=== PATIENT | male | born 1960 | race Caucasian/White ===

== ENCOUNTER 2018-06-24 14:57 | Inpatient (IN) | payer OTHER, MEDICARE ==
[~2018-06-24] VITALS: Ht 157.5 cm; Wt 62.3 kg
[2018-06-24 15:44] LABS: ABSOLUTE BASOPHIL COUNT 0 /CUMM (0.0-0.2); ABSOLUTE EOSINOPHIL COUNT 1.2 /CUMM (0.0-0.7); ABSOLUTE LYMPH COUNT 2.8 /CUMM (1.2-3.4); ABSOLUTE MONOCYTE COUNT 0.7 /CUMM (0.10-0.60); BASOPHIL % 0.4 % (0.0-2.0); GRANULOCYTE % 51.8 % (42.2-75.2); HEMATOCRIT 54.7 % (42-52); MEAN CORPUSCULAR HGB 30.1 PG (27.0-31.0); MEAN CORPUSCULAR HGB CONC 32.8 G/DL (33.0-37.0); MEAN CORPUSCULAR VOLUME 91.8 FL (80.0-94.0); MEAN PLATELET VOLUME 8.2 FL (7.4-10.4); PLATELET COUNT 272 /CUMM (130-400); RBC DISTRIBUTION WIDTH 13.3 % (11.5-14.5); RED BLOOD CELL CT 5.95 /CUMM (4.70-6.10); WHITE BLOOD CELL COUNT 9.7 /CUMM (4.8-10.8)
--- NOTE | 2018-06-24 15:52 | ED PSYCHIATRIC COMPLAINT ---
History of Present Illness General Chief Complaint: ETOH/Drug Related Complaint Stated Complaint: ETOH Source: patient Exam Limitations: intoxication Vital Signs & Intake/Output Vital Signs & Intake/Output Vital Signs Date Time Temp Pulse Resp B/P B/P Pulse O2 O2 Flow FiO2 Mean Ox Delivery Rate 06/25 1004 97.6 90 18 157/90 06/25 0934 97.6 90 18 157/90 98 Room Air 06/25 0745 97.9 78 20 138/78 06/25 0642 88 18 141/80 98 Room Air 06/25 0529 98.0 99 20 152/76 06/25 0328 98.0 101 20 146/86 06/25 0230 98.2 100 20 136/84 06/25 0010 98.0 102 20 154/96 100 Room Air 06/24 2121 98.2 106 20 165/101 96 06/24 1920 98.2 120 20 141/90 95 Room Air 06/24 1744 97.7 131 20 134/81 97 Room Air 06/24 1505 97.8 128 24 143/89 97 Room Air Room Air ED Intake and Output 06/25 0000 06/24 1200 Intake Total Output Total 300 Balance -300 Output, Urine 300 Patient 145 lb Weight Weight Reported by Patient Measurement Method Allergies Coded Allergies: NO KNOWN ALLERGIES (06/24/18) Triage Note: BIBA + ETOH, PER EMS "HE SENT A VIDEO TO A FRIEND SAYING BOOGIE". PT ARRIVES INCOHERENT, VERY WET (POURING RAIN), CHANGED TO DRY HOSP GOWN AND RED SOCKS. UNABLE TO GET CLEAR STORY FROM PT, HAD [employer] SPEAKING SITTER ATTEMPT TO ASSIST, BUT PT SPEAKING IN [facility]. Triage Nurses Notes Reviewed? yes HPI: Patient presents for evaluation of possible alcohol intoxication and suicide ideation. According to the police PEER, the patient had taken an overdose of Tylenol PM and posted video saying boogiee to everyone. (Edwina LOOMIS,Romeo Siegel) Reconcile Medications No Known Home Medications (Cathy LOOMIS,[facility]) Past History Travel History Traveled to [place] past 21 day No Medical History Any Pertinent Medical History? see below for history Isolation History: Standard Surgical History Surgical History: non-contributory Psychosocial History What is your primary language Uzbek Family History Hx Contributory? No (Edwina LOOMIS,Romeo Siegel) Review of Systems Review of Systems Constitutional: Reports: no symptoms. EENTM: Reports: no symptoms. Respiratory: Reports: no symptoms. Cardiovascular: Reports: no symptoms. GI: Reports: no symptoms. Genitourinary: Reports: no symptoms. Musculoskeletal: Reports: no symptoms. Skin: Reports: no symptoms. Neurological/Psychological: Reports: no symptoms. Hematologic/Endocrine: Reports: no symptoms. Immunologic/Allergic: Reports: no symptoms. All Other Systems: Reviewed and Negative (Edwina LOOMIS,Romeo Siegel) Physical Exam Physical Exam General Appearance: SEE BELOW Neurological/Psychiatric: SEE BELOW SAD PERSONS Done? DEFERRED TO CRISIS (Edwina LOOMIS,Romeo Siegel) Progress Differential Diagnosis: drug intoxication, drug overdose, electrolyte abnormality, hypoglycemia Plan of Care: Orders Procedure Date/time Status Regular Diet 06/25 L Active Heart Healthy Diet 06/25 B Complete Patient Data - inpatient psych 06/25 1058 Active Admit to inpatient psych 06/25 1058 Active Admit to inpatient psych 06/25 1036 Active ED CRISIS PSYCH CONSULT 06/25 0712 Active Vital Signs 06/25 UNK Active Activity/Ambulation 06/25 UNK Active ACETOMINOPHEN 06/24 1900 Complete Add-on Test (ER Only) 06/24 1827 Active EKG 06/24 1827 Active CIWA 06/24 1826 Active FingerStick- Glucose 06/24 1822 Active Add-on Test (ER Only) 06/24 1626 Active ACETOMINOPHEN 06/24 1535 Complete TSH REFLEX 06/24 1535 Complete SALICYLATE 06/24 1535 Complete Intake & Output 06/24 1527 Active URINE DRUG SCREEN FOR ER ONLY 06/24 1513 Complete URINALYSIS 06/24 1513 Complete MAGNESIUM 06/24 1513 Complete ETHANOL 06/24 1513 Complete COMPREHENSIVE METABOLIC PANEL 06/24 1513 Complete CBC WITHOUT DIFFERENTIAL 06/24 1513 Complete Patient Safety Monitor 06/24 1512 Active Current Medications Sig/Mamadou Start time Last Medication Dose Stop Time Status Admin Chlordiazepoxide HCl 50 MG AT BEDTIME 06/25 2100 UNVr (Librium) Chlordiazepoxide HCl 25 MG Q4 HRS NEEDED PRN 06/25 1115 UNVr (Librium) Chlordiazepoxide HCl 50 MG Q4 HRS NEEDED PRN 06/25 1115 UNVr (Librium) Chlordiazepoxide HCl 25 MG ONCE ONE 06/25 1115 UNVr (Librium) 06/25 1116 Folic Acid 1 MG DAILY 06/25 1104 UNVr (Folic Acid) Multivitamins 1 TAB DAILY 06/25 1104 UNVr (Theragran Vitamins) Thiamine HCl 100 MG DAILY 06/25 1104 UNVr (Vitamin B1) Acetaminophen 650 MG Q4P PRN 06/25 1100 UNVr (Tylenol) Al Hydroxide/Mg 30 ML Q4-6 PRN PRN 06/25 1100 UNVr Hydroxide (Maalox Plus) Magnesium Hydroxide 30 ML AT BEDTIME PRN 06/25 1100 UNVr (Milk Of Magnesia) Laboratory Tests 06/24/18 1850: Acetaminophen < 10.0 L 06/24/18 1535: Urine Opiates Screen < 100, Methadone Screen 66, Barbiturate Screen < 60, Ur Phencyclidine Scrn < 6.00, Amphetamines Screen < 100, U Benzodiazepines Scrn < 85, Urine Cocaine Screen < 50, Urine Cannabis Screen < 5.00 06/24/18 1535: Anion Gap 13, Estimated GFR > 60, BUN/Creatinine Ratio 7.3, Glucose 43 *L, Calcium 9.4, Magnesium 2.6 H, Total Bilirubin 0.6, AST 24, ALT 15 L, Alkaline Phosphatase 64, Total Protein 8.4 H, Albumin 4.8, Globulin 3.6, Albumin/ Globulin Ratio 1.3, TSH &T3 &Free T4 Intrp 1.240, CBC w Diff NO MAN DIFF REQ, RBC 5.95, MCV 91.8, MCH 30.1, MCHC 32.8 L, RDW 13.3, MPV 8.2, Gran % 51.8, Lymphocytes % 28.7, Monocytes % 7.1, Eosinophils % 12.0 H, Basophils % 0.4, Absolute Granulocytes 5.0, Absolute Lymphocytes 2.8, Absolute Monocytes 0.7 H, Absolute Eosinophils 1.2, Absolute Basophils 0, Salicylates < 1.0, Acetaminophen < 10.0 L, Serum Alcohol 163.0, Urine Color YEL, Urine Clarity CLEAR, Urine pH 6.5, Ur Specific [place] <= 1.005, Urine Protein NEG, Urine Ketones NEG, Urine Nitrite NEG, Urine Bilirubin NEG, Urine Urobilinogen 0.2, Ur Leukocyte Esterase NEG, Ur Microscopic EXAM NOT REQUIRED, Urine Hemoglobin NEG, Urine Glucose NEG Initial ED EKG: NSR, rate (130) Comments: 06/24/2018 4:59:28 PM I reevaluated jose while the IV was being placed for his IV dextrose. Clinically he appeared much more alert and his speech is considerably more clear and coherent. 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 (Edwina LOOMIS,oRmeo Siegel) Hand-Off Endorsed To: Xochitl Morgan MD Endorsed Time: 0716 (Mitul LOOMIS,Robert) Comments: 1031 crisis evaluation completed, the patient will be admitted. (Xochitl Morgan MD) Departure Departure Disposition: STILL A PATIENT Condition: Stable Referrals: Jose Arizmendi MD (PCP/Family) Departure Forms: Customer Survey General Discharge Information (Edwina LOOMIS,Romeo Siegel) Departure Time of Disposition: 1030 Clinical Impression Primary Impression: Alcohol intoxication Qualifiers: Complication of substance-induced condition: uncomplicated Qualified Code: F10.920 - Alcohol use, unspecified with intoxication, uncomplicated Secondary Impressions: Depression Prescriptions: Current Visit Scripts No Known Home Medications Admission Note Spoke With: Michael Gabriel MD Documentation of Exam: Documentation of any treatments & extenuating circumstances including Concerns Regarding Discharge (functional status, medication knowledge or non-compliance, living conditions, etc.) that warrant an admission rather than observation: Patient to be admitted with depression to Inpatient Psychiatry. (Xochitl Morgan MD)
[2018-06-25] VITALS (10 sets, daily range): BP systolic 134–166; BP diastolic 76–96
--- NOTE | 2018-06-25 08:26 | ED PSYCH CRISIS CONSULTATION ---
Crisis Consult Basic Assessment Date of Consult: 06/25/18 Responsible Person/Accompanied By: self/biba/PEER Insurance Authorization: Insurance #1: Insurance name: MEDICARE A Phone number: Policy number: [id number] Group number: Authorization number: ED Provider: Patient's ED Provider: Edwina LOOMIS,Romeo Siegel Primary Care Physician: Patient's PCP: Josué Arizmendi MD PCP's Current Psychiatrist: none Chief Complaint: ETOH/Drug Related Complaint Patient's Quote: I've been depressed for a long time Present Illness: Pt is a 58 yo male biba yesterday afternoon to [place] ED on a [place] [employer] PEER. PEER documents pt sent out a video to friends saying boogiee and was found in his apartment with an empty bottle of tylenol PM, a large pile of vomit and an empty bottle of whiskey. ED BAL: 163. Pt is primarily Haitian speaking but appears to understand and communicate well in Azeri. Pt reports he came to the [place] in his early 30s. Pt reports feeling depressed for a long time since back injury in 2008. 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 Pt reports significant financial stressors including possibility of losing his house and car. Pt admits to depression score of 9/10 with 10 being most severe depression but denies being suicidal and states yesterday incident was impulsive and foolish. Pt has recently returned from a long visit in [place] where the majority of his biological family reside. 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 Pt resides with his 19 yo step-daughter and maintains a good relationship with his ex- who is the mother of his 7 yo daughter. Pt reports having a 36 yo daughter in [place] and a 28yo son in [facility]. Pt reports no prior suicide attempts or inpatient psychiatric hospitalizations. Pt denies HI/ AH/VH. Pt reports being prescribed Cymbalta by Marycruz Samuels APRN but stopped taking in October 2017 because he didn't like how it made him feel. Pt reports seeing therapist Katrina Mcduffie [phone] in [place] for depression but hasn't seen her since March. Pt reports poor sleep and takes Advil PM to help. Pt reports decreased appetite and only eating 1x/day past 2 weeks. Pt presenting as tearful, sad affect, soft spoken, cooperative and OX3. Case reviewed with Dr Gabriel with recommendation for inpatient psychiatric treatment. Pt willing to sign in voluntarily for admission to [facility]. Patient's Address: [address] [place], [place] [id number] Other Phone Number: Who Do You Live With? Daughter (step-daughter age 19) Family/Informants Interviewed: collateral provided by pt step-daughter Kandice ( age 19) [phone]. She reports pt yesterday sent a 5 min tearful [employer]ation [employer] video to his 7 yo daughter and a friend out state that her mother saw and called 911. She reports pt also stated to her mother yesterday " I'd rather and go to hell...I don't care anymore". Allergies - Coded Allergies: NO KNOWN ALLERGIES (06/24/18) Current Medications - No Known Home Medications Laboratory Results: Laboratory Tests 06/24/18 1850: Acetaminophen < 10.0 L 06/24/18 1535: Urine Opiates Screen < 100, Methadone Screen 66, Barbiturate Screen < 60, Ur Phencyclidine Scrn < 6.00, Amphetamines Screen < 100, U Benzodiazepines Scrn < 85, Urine Cocaine Screen < 50, Urine Cannabis Screen < 5.00 06/24/18 1535: Anion Gap 13, Estimated GFR > 60, BUN/Creatinine Ratio 7.3, Glucose 43 *L, Calcium 9.4, Magnesium 2.6 H, Total Bilirubin 0.6, AST 24, ALT 15 L, Alkaline Phosphatase 64, Total Protein 8.4 H, Albumin 4.8, Globulin 3.6, Albumin/ Globulin Ratio 1.3, TSH &T3 &Free T4 Intrp 1.240, CBC w Diff NO MAN DIFF REQ, RBC 5.95, MCV 91.8, MCH 30.1, MCHC 32.8 L, RDW 13.3, MPV 8.2, Gran % 51.8, Lymphocytes % 28.7, Monocytes % 7.1, Eosinophils % 12.0 H, Basophils % 0.4, Absolute Granulocytes 5.0, Absolute Lymphocytes 2.8, Absolute Monocytes 0.7 H, Absolute Eosinophils 1.2, Absolute Basophils 0, Salicylates < 1.0, Acetaminophen < 10.0 L, Serum Alcohol 163.0, Urine Color YEL, Urine Clarity CLEAR, Urine pH 6.5, Ur Specific [place] <= 1.005, Urine Protein NEG, Urine Ketones NEG, Urine Nitrite NEG, Urine Bilirubin NEG, Urine Urobilinogen 0.2, Ur Leukocyte Esterase NEG, Ur Microscopic EXAM NOT REQUIRED, Urine Hemoglobin NEG, Urine Glucose NEG Past History Past Surgical History Surgical History: non-contributory Psychosocial History Strengths/Capabilities: supportive family but primarily in [place] Psychiatric Treatment History Psych Treatment Psychiatric Treatment Yes Inpatient Treatment No Outpatient Treatment Yes Substance Use/Abuse History Drug Use/Abuse Substances Used/Abused Yes Substance Used/Abused Alcohol Last Used yesterday How much used/taken undetermined How often daily Substance Abuse Treatment Substance Abuse Treatment Past Substance Abuse [place] No Inpatient Treatment No Outpatient Treatment No Comments: pt reports etoh 1-2 glasses of wine/day but will drink excessively when feeling depressed. Current Mental Status Mental Status Orientation: Person, Place, Situation Affect: Depressed, Hopeless, Sad Speech: Soft Neuro-vegetative: Anhedonia, Appetite Decreased, Helpless, Loss of Interest, Sleep Disturbance Behaviors Thought Process: WNL Thought Content: WNL Memory: WNL Insight: Fair SI/HI Risk Assessment Past Suicidal Ideation/Attempts Yes (pt denies) Current Suicidal Ideation/Att No Past Homicidal Ideation/Att: No Current Homicidal Ideation/Attempts No Degree of Intent: Thoughts/No Intent Danger To: Self Gravely Disabled: Poor Impulse Control, Poor Judgment Risk Factors: chronic/serious med cond., high anxiety/distress, substance abuse, isolate/no social support, poor impulse control, male, limited support Lethality Ratin PTSD Checklist PTSD Done? patient declined ED Management Sitter: Yes Restraints: No DSM5/PS Stressors/Medical Prob Diagnosis' (DSM 5, Stressors, Medical): Unspecified Depression F32.9 Alcohol Use D/O F 10.20 financial lack of family supports in [place] chronic back pain Current GAF: 25 Comments: pt reports hx of depression since back injury 2008. Pt reports prescribed Cymbalta by Marycruz Samuels APRN- last dose Oct 2017 - feels it wasn't helpful - currently in outpatient tx last appointment March 2018. Departure Disposition Psych Medical Clearance Date: 06/25/18 Medically Cleared at: 0730 Time Started: 729 Time Ended: 814 Psychiatrist Consulted: Michael Gabriel MD Date Disposition Established: 06/25/18 Time Disposition Established: 899 Plan for Disposition - Modality: Inpatient Psychiatry Facility: [facility] Rationale for Disposition: mood stabilization; medication assessment Type of IP Admission: Voluntary Referrals Ugo LOOMIS,Josué Ferro (PCP/Family)
--- NOTE | 2018-06-25 11:27 | IP CRISIS DIAG ASSESS PSYCH ---
Diagnostic Assessment Basic Assessment Insurance Authorization: Insurance #1: Insurance name: MEDICARE A BEHAVIORAL HEALTH Phone number: Policy number: [id number] Group number: Authorization number: Nadiya# [id number] Primary Care Physician: Patient's PCP: Josué Arizmendi MD PCP's Patient's Quote: I've been depressed for a long time Present Illness: Pt is a 58 yo male biba yesterday afternoon to [place] ED on a [place] [employer] PEER. PEER documents pt sent out a video to friends saying jessicarosaliae and was found in his apartment with an empty bottle of tylenol PM, a large pile of vomit and an empty bottle of whiskey. ED BAL: 163. Pt is primarily New Zealander speaking but appears to understand and communicate well in Yoruba. Pt reports he came to the [place] in his early 30s. Pt reports feeling depressed for a long time since back injury in 2008. 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 Pt reports significant financial stressors including possibility of losing his house and car. Pt admits to depression score of 9/10 with 10 being most severe depression but denies being suicidal and states yesterday incident was impulsive and foolish. Pt has recently returned from a long visit in [place] where the majority of his biological family reside. 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 Pt resides with his 19 yo step-daughter and maintains a good relationship with his ex- who is the mother of his 7 yo daughter. Pt reports having a 36 yo daughter in [place] and a 28yo son in [facility]. Pt reports no prior suicide attempts or inpatient psychiatric hospitalizations. Pt denies HI/ AH/VH. Pt reports being prescribed Cymbalta by Marycruz Samuels APRN but stopped taking in October 2017 because he didn't like how it made him feel. Pt reports seeing therapist Katrina Mcduffie [phone] in [place] for depression but hasn't seen her since March. Pt reports poor sleep and takes Advil PM to help. Pt reports decreased appetite and only eating 1x/day past 2 weeks. Pt presenting as tearful, sad affect, soft spoken, cooperative and OX3. Case reviewed with Dr Gabriel with recommendation for inpatient psychiatric treatment. Pt willing to sign in voluntarily for admission to [facility]. Patient's Address: [address] [place] [id number] Other Phone Number: Who Do You Live With? Daughter (step-daughter age 19) Feel Safe Where You Live? Yes Feel Safe in Your Relationship Yes Marital Status: Do You Have Children? Yes Ages? 36,28,7 Primary Language? New Zealander Language(s) Spoken At Home: New Zealander Family/Informants Interviewed: collateral provided by pt step-daughter Kandice ( age 19) [phone]. She reports pt yesterday sent a 5 min tearful [place] video to his 7 yo daughter and a friend out state that her mother saw and called 911. She reports pt also stated to her mother yesterday " I'd rather and go to hell...I don't care anymore". Allergies - Coded Allergies: NO KNOWN ALLERGIES (06/24/18) Current Medications - No Known Home Medications Consequences of Psych Med Use: pt had prior trial of Cymbalta (last use Oct 2017) reports it was ineffective Lab Results: Laboratory Tests 06/24/18 1850: Acetaminophen < 10.0 L 06/24/18 1535: Urine Opiates Screen < 100, Methadone Screen 66, Barbiturate Screen < 60, Ur Phencyclidine Scrn < 6.00, Amphetamines Screen < 100, U Benzodiazepines Scrn < 85, Urine Cocaine Screen < 50, Urine Cannabis Screen < 5.00 06/24/18 1535: Anion Gap 13, Estimated GFR > 60, BUN/Creatinine Ratio 7.3, Glucose 43 *L, Calcium 9.4, Magnesium 2.6 H, Total Bilirubin 0.6, AST 24, ALT 15 L, Alkaline Phosphatase 64, Total Protein 8.4 H, Albumin 4.8, Globulin 3.6, Albumin/ Globulin Ratio 1.3, TSH &T3 &Free T4 Intrp 1.240, CBC w Diff NO MAN DIFF REQ, RBC 5.95, MCV 91.8, MCH 30.1, MCHC 32.8 L, RDW 13.3, MPV 8.2, Gran % 51.8, Lymphocytes % 28.7, Monocytes % 7.1, Eosinophils % 12.0 H, Basophils % 0.4, Absolute Granulocytes 5.0, Absolute Lymphocytes 2.8, Absolute Monocytes 0.7 H, Absolute Eosinophils 1.2, Absolute Basophils 0, Salicylates < 1.0, Acetaminophen < 10.0 L, Serum Alcohol 163.0, Urine Color YEL, Urine Clarity CLEAR, Urine pH 6.5, Ur Specific [place] <= 1.005, Urine Protein NEG, Urine Ketones NEG, Urine Nitrite NEG, Urine Bilirubin NEG, Urine Urobilinogen 0.2, Ur Leukocyte Esterase NEG, Ur Microscopic EXAM NOT REQUIRED, Urine Hemoglobin NEG, Urine Glucose NEG Toxicology Screen Completed? Yes Results: positive Symptoms of Use: positive etoh, denies drugs or cigarettes Past History Abuse/Trauma History Trauma History/Current Trauma: Denies Legal History Current Legal Status: none Psychosocial History Strengths/Capabilities: supportive family but primarily in [place] Psychiatric Treatment History Psych Treatment Psychiatric Treatment Yes Inpatient Treatment No Outpatient Treatment Yes Risk Factors: chronic/serious med cond., high anxiety/distress, substance abuse, isolate/no social support, poor impulse control, male, limited support Substance Use/Abuse History Drug Use/Abuse minimum 12mo Hx Substances Used/Abused Yes Substance Used/Abused Alcohol Last Used yesterday How much used/taken undetermined How often daily Substance Abuse Treatment Substance Abuse Treatment Past Substance Abuse [place] No Inpatient Treatment No Outpatient Treatment No Education History Highest Level of Education: high school/GED Preferred Learning Style: visual, auditory, experiential Current Mental Status Mental Status Orientation: Person, Place, Situation Affect: Depressed, Hopeless, Sad Speech: Soft Neuro-vegetative: Anhedonia, Appetite Decreased, Helpless, Loss of Interest, Sleep Disturbance Appearance Appearance- Dress/Hygiene: hospital scrubs; adequately groomed; tearful/red eyes Behaviors Thought Process: WNL Thought Content: WNL Memory: WNL Insight: Fair SI/HI Risk Assessment - Minimum 6mo History- Past Suicidal Ideation/Attempts Yes (pt denies) Current Suicidal Ideation/Att No Past Homicidal Ideation/Att: No Current Homicidal Ideation/Attempts No Degree of Intent: Thoughts/No Intent Danger To: Self Gravely Disabled: Poor Impulse Control, Poor Judgment Risk Factors: chronic/serious med cond., high anxiety/distress, substance abuse, isolate/no social support, poor impulse control, male, limited support Lethality Ratin Needs/Init TX Plan/Goals: Psychiatric evaluation medication assessment individual, group and family meetings coordinated discharge planning AUDIT-C Questionnaire: AUDIT-C Questionnaire: Response Value ETOH use in the past year 4 or more per week 4 # drinks typical/day Doesn't Drink 0 6 or > drinks per occasion Monthly 2 Total 6 DSM5/PS Stressors/Medical Prob Diagnosis' (DSM 5, Stressors, Medical): Unspecified Depression F32.9 Alcohol Use D/O F 10.20 financial lack of family supports in chronic back pain Current GAF: 25 Comments: pt reports hx of depression since back injury 2008. Pt reports prescribed Cymbalta by Marycruz Samuels APRN- last dose Oct 2017 - feels it wasn't helpful - currently in outpatient tx last appointment March 2018.
[2018-06-26 07:34] VITALS: BP 129/79
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
--- NOTE | 2018-06-26 12:18 | History & Physical ---
General Information and HPI MD Statement: I have seen and personally examined LYNDSAY TERRY and documented this H&P. The patient is a 58 year old M who presented with a patient stated chief complaint of "descending video to a friend saying boogiee". Source of Information: patient, EMS, police Exam Limitations: unable to give history History of Present Illness: 58-year-old male brought in by ambulance positive EtOH. Per EMS he apparently sent a video to a friend saying zane. At the time they saw him he was incoherent. In the ER his BAL was 163. He feels depressed for a long time since his back surgery in 2008. He has no appetite and no energy is tearful has a sad affect and he is soft spoken. 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 Exam & Diagnostic Data Last 24 Hrs of Vital Signs/I&O Vital Signs Date Time Temp Pulse Resp B/P B/P Pulse O2 O2 Flow FiO2 Mean Ox Delivery Rate 06/26 0734 97.7 74 129/79 06/26 0734 97.7 74 129/79 06/25 1955 98.0 83 134/83 06/25 1952 98.0 83 134/83 06/25 1614 87 158/96 06/25 1257 92 141/79 Physical Exam General Appearance Alert, Oriented X3, Cooperative, No Acute Distress Skin No Rashes HEENT PERRLA, EOMI, Mucous Membr. moist/pink Neck No JVD, No thryomegaly Lymphatic Axillary nl, Cervical nl Cardiovascular Regular Rate, No Murmurs Lungs Clear to Auscultation, Normal Air Movement Abdomen Soft, No Tenderness, No Hepatospenomegaly Neurological Exam Findings: Normal Gait, Normal Speech, Strength at 5/5 X4 Ext, Normal Tone, Sensation Intact, Cranial Nerves 3-12 NL, Reflexes 2+ Cranial Nerves II through XII: intact Extremities No Edema, Normal Pulses, No Tenderness/Swelling Vascular Normal Pulses, Pulses Symmetrical Last 24 Hrs of Labs/Russel: Laboratory Tests 06/24/18 1850: Acetaminophen < 10.0 L 06/24/18 1535: Urine Opiates Screen < 100, Methadone Screen 66, Barbiturate Screen < 60, Ur Phencyclidine Scrn < 6.00, Amphetamines Screen < 100, U Benzodiazepines Scrn < 85, Urine Cocaine Screen < 50, Urine Cannabis Screen < 5.00 06/24/18 1535: Anion Gap 13, Estimated GFR > 60, BUN/Creatinine Ratio 7.3, Glucose 43 *L, Calcium 9.4, Magnesium 2.6 H, Total Bilirubin 0.6, AST 24, ALT 15 L, Alkaline Phosphatase 64, Total Protein 8.4 H, Albumin 4.8, Globulin 3.6, Albumin/ Globulin Ratio 1.3, TSH &T3 &Free T4 Intrp 1.240, CBC w Diff NO MAN DIFF REQ, RBC 5.95, MCV 91.8, MCH 30.1, MCHC 32.8 L, RDW 13.3, MPV 8.2, Gran % 51.8, Lymphocytes % 28.7, Monocytes % 7.1, Eosinophils % 12.0 H, Basophils % 0.4, Absolute Granulocytes 5.0, Absolute Lymphocytes 2.8, Absolute Monocytes 0.7 H, Absolute Eosinophils 1.2, Absolute Basophils 0, Salicylates < 1.0, Acetaminophen < 10.0 L, Serum Alcohol 163.0, Urine Color YEL, Urine Clarity CLEAR, Urine pH 6.5, Ur Specific Towner <= 1.005, Urine Protein NEG, Urine Ketones NEG, Urine Nitrite NEG, Urine Bilirubin NEG, Urine Urobilinogen 0.2, Ur Leukocyte Esterase NEG, Ur Microscopic EXAM NOT REQUIRED, Urine Hemoglobin NEG, Urine Glucose NEG Diagnostic Data EKG Results Normal Assessment/Plan As Ranked By This Provider Problem List: 1. Depression 2. Alcohol intoxication Qualifiers Complication of substance-induced condition: uncomplicated Qualified Code: F10.920 - Alcohol use, unspecified with intoxication, uncomplicated 3. Back pain Miscellaneous Miscellaneous Documentation Attending Case Discussed With: Michael Gabriel MD Primary Care Physician: Lyndsay Arizmendi MD Patient sees these Specialists Psych Level of Patient Care: ANTONIA Hammond Consults Needed: Consulting Specialty: Psychiatry Consulting Physician: Dr. Santiago Reason for Consult: Depression, ETOH Attending MD Review Statement Attending Statement Attending MD Statement: examined this patient
--- NOTE | 2018-06-26 14:45 | SOCIAL WORKER PROG NOTE PSYCH ---
Social Work Progress Note Progress Note I Dimitri Bustos ([facility] [place] Miller Apprentice[place] along with the medical student met with Josué this morning in his room. The patient stated that his mood is "good". 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 The client expressed that his step daughter is a trigger for him because she stays at his home and makes a mess in the house. The patient feels the need to help his family. Josué said that he paid for his step daughter' s car and let her live there. When asked what led up to him drinking and taking multiple Advil Pms the patient reports that financial stressors and his racing thoughts were overwhelming. He expressed that he had no intention to commit suicide and he just wanted to go to sleep for a few days. The patient made it clear that he sent the video to his seven year old daughter to apologize that he could not keep his promise to care for his daughter. He currently has shared custody of his 7 year old daughter with autism. The patient is aware that his drinking increases with his feelings of depression. His appetite decreases when he is feeling depressed. The patient has sleep difficulties on a regular basis. The exception to the patient's depression was the 3 month period that he was in [place]. The patient denies SI, HI, AH, and VH. The patient expressed that when he feels the urge to drink he needs to change his thoughts and go for a walk or hike. I inquired about if the patient had any family members that he would like to have a family meeting with or who would be a support for him to which he replied no most of my support is in [place] and I plan to move back there. The patient also mentioned that he plans to file for bankrupcy due to financial stressors. He shared that he believed that his step daughter learned from his ex aka her mother to "freeload off of him" The patient did sign a release for his therapist in [place].
[2018-06-26 15:45] VITALS: BP 131/78
[2018-06-26 19:43] VITALS: BP 140/86
[2018-06-26 20:09] VITALS: BP 140/86
[2018-06-27 07:39] VITALS: BP 140/79
[2018-06-27 07:46] VITALS: BP 140/79
--- NOTE | 2018-06-27 12:48 | CP SOUTH PROGRESS NOTE PSYCH ---
Psych (Inpt) Progress Note Progress Note Vital Signs Date Time Temp Pulse B/P B/P O2 06/27 0746 97.7 71 140/79 06/27 0739 97.7 71 140/79 06/26 2009 97.4 91 140/86 06/26 1943 97.4 91 140/06/26 1545 75 131/78 Mental Status Examination Short and thin [place]er man with steady gait, he was calm and cooperative, Normal psychomotor activity. No abnormal or bizarre behaviors. Normal speech, not pressured. Good range of affect, he reported that he's feeling much better ( not depressed) today. he looked calm and in better spirits. He denied any thoughts of suicide today, he denied any thoughts of violence or homicide today. He denied hallucinations. He denies feeling paranoid, there were no delusions during the interview Coherent, no thought disorder, partial insight. Alert and oriented to time, place, and person. No difficulties with information processing. No evidence of short-term memory impairment Assessment: A 58-year-old white male of [place]er extraction who was admitted after being found with an empty bottle of whiskey and an empty bottle of Tylenol. Patient reported that he was doing well in [place] while he was spending an extended vacation. He reported he felt extremely depressed soon after he came back (10 days earlier). There has been a lot of psychosocial stressors including conflict with his 19-year-old step-daughter who seems to be taking advantage of the patient financially Diagnoses: Major Depressive Disorder Adjustment Disorder with disturbance of emotions and conduct Treatment Plan: The patient was mostly concerned about the sexual side effects of antidepressants. I discussed with him options that have minimal sexual side effects regarding antidepressant medications and he was agreeable to give Remeron chance I discussed with him the advantages and side effects of Remeron and we agreed on the following plan: D/C CIWA D/C PRN Librium Reduce bedtime Librium to 10 mg QHS for the weekedn Start Remeron 7.5 mg at bedtime Slated for discharge on Saturday
--- NOTE | 2018-06-27 13:33 | SOCIAL WORKER PROG NOTE PSYCH ---
Social Work Progress Note Progress Note I Dimitri Bustos (PERSONNEL PLACEMENT SPECIALIST Welfare Centre Manager) met with Josué in the late morning. The patient stated that he was in a "good" mood today which was consistent with his affect. On a scale of 1 to 10 with 10 being severe the patient rated his depression as a 2 today. The patient reported no anxiety. He feels eager to go home but was accepting of the doctor's decision to stay through the weekend. Josué expressed that he has enjoys groups on the unit. In groups he gets to share his stories but he can learn from others experiences. Josué shared that his family in [place] is supportive and they want him to come back to [place]. Patient has a support system in [place] but his 7 year old daughter is in [facility] and he still want to be around for her because she lived with him up until recently. The daughter currently lives with her mother which Josué has mixed feelings about. He wants the daughter to have a relationship with her mother. Josué is very protective of his duaghter and wants to ensure her safety. He is comfortable with his daughter living with hier mother now that her anger is under control. Josué said his ex only acted out of anger once towards him and police were involved. She has never hurt the children. Patient verbalized that he did not send a video saying zane instead it was a tearful apology. The thought process behind this is that prior to returning home from [place] he told his step daughter that she needs to find somewhere else to live soon and to get a job to help pay her bills. I asked Josué his thoughts about doing an IOP when he discharges. I informed him that IOP meets three times a week for three hours each day which consists of group therapy along with medications management. I let him know this is generally the next level of care that is suggested for patients who discharge from the unit. The patient acknowledged that he likes the groups on the unit thus but would like some more time to think about IOP since he has a lot on his mind . He will inform Daria Graf LCSW about his thoughts about IOP on Saturday.
--- NOTE | 2018-06-27 16:28 | SOCIAL WORKER PROG NOTE PSYCH ---
Social Work Progress Note Progress Note The services requested require additional review. You will be contacted regarding the status of this request if further information is needed. An authorization decision will be made within the required timeframes and details of that decision may be found under the member's authorization history. Member Name Member ID Member Subscriber Name Subscriber ID LYNDSAY BATISTA [id number] 1960 LYNDSAY BATISTA [id number] Pended Authorization # Client Authorization # Type of Request [id number] CONCURRENT Date of Admission/ Start of Services Requested From Submission Date 06/25/2018 06/28/2018 06/27/2018 Level of Service Type of Service Level of Care Type of Care INPATIENT/HLOC [facility]patient [facility] Reason Code P76 Provider Name & Address Provider ID Provider Alternate ID NPI # for Authorization WILBER ORTEGA [id number] N/A [address] [facility] [id number] Message
[2018-06-27 19:55] VITALS: BP 138/85
[2018-06-28 07:40] VITALS: BP 137/90
--- NOTE | 2018-06-28 16:06 | CP SOUTH PROGRESS NOTE PSYCH ---
Psych (Inpt) Progress Note Progress Note Progress Note: A 58-year-old white male of [place] extraction who was admitted after being found with an empty bottle of whiskey and an empty bottle of Tylenol. There has been a lot of psychosocial stressors including conflict with his 19- year-old step-daughter who seems to be taking advantage of the patient financially. Today, pt feels "good". He reported good sleep and appetite. He denied any issues with energy level. He denied any suicidal ideation. Hedenied any worries. He denied any medication side effect. He denied any hallucination. PER RN report, pt is doing OK. No issues on the unit. MMSE: PT was AOx3. He was appropriately dress and well groomed. Good eye contact. HE was cooperative and engaged. His thoughts were linear and goal directed. NO suicidal thought or homicidal thoughts or psychosis or halluicnation. His speech was normal rate. His insight and judgement is fair. 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 No mood issue or suicidality or withdrawal symptoms. Will continue medication. Treatment Plan: D/C CIWA D/C PRN Librium Reduce bedtime Librium to 10 mg QHS for the weekedn Continue Remeron 7.5 mg at bedtime Slated for discharge on Saturday
[2018-06-28 20:20] VITALS: BP 156/72
[2018-06-29 08:29] VITALS: BP 136/87
--- NOTE | 2018-06-29 13:23 | CP SOUTH PROGRESS NOTE PSYCH ---
Psych (Inpt) Progress Note Progress Note A 58-year-old white male of [place] extraction who was admitted after being found with an empty bottle of whiskey and an empty bottle of Tylenol. There has been a lot of psychosocial stressors including conflict with his 19- year-old step-daughter who seems to be taking advantage of the patient financially. Today, Pt again noted feeling good and relax. He denied any issues with sleep or appetite. He denied any worries or suicidality or medication side effect. PER RN report, pt is doing OK. No behavioral issues Current Medications Sig/Mamadou Start time Last Medication Dose Route Stop Time Status Admin Acetaminophen 650 MG Q4P PRN 06/25 1100 AC PO Al Hydroxide/Mg 30 ML Q4-6 PRN PRN 06/25 1100 AC Hydroxide PO Chlordiazepoxide HCl 10 MG AT BEDTIME 06/27 2100 AC 06/28 PO 2125 Folic Acid 1 MG DAILY 06/25 1120 AC 06/29 PO 0937 Magnesium Hydroxide 30 ML AT BEDTIME PRN 06/25 1100 AC 06/29 PO 0939 Mirtazapine 7.5 MG AT BEDTIME 06/27 2100 AC 06/28 PO 2125 Multivitamins 1 TAB DAILY 06/25 1120 AC 06/29 PO 0937 Thiamine HCl 100 MG DAILY 06/25 1120 AC 06/29 PO 0937 Vital Signs Date Time Temp Pulse Resp B/P B/P Pulse O2 O2 Flow FiO2 Mean Ox Delivery Rate 06/29 829 96.2 75 136/87 06/28 2020 97.0 79 156/72 MMSE: PT was AOx3. He was appropriately dress and well groomed. He was cooperative and engaged. His thoughts were linear and goal directed. Good eye contact. . NO suicidal thought or homicidal thoughts or psychosis or halluicnation. His speech was normal rate. His insight and judgement is fair. 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 Will continue medication Treatment Plan: D/C CIWA D/C PRN Librium Reduce bedtime Librium to 10 mg QHS for the weekednd Continue Remeron 7.5 mg at bedtime Slated for discharge on Saturday
[2018-06-29 19:53] VITALS: BP 158/88
[2018-06-30 07:39] VITALS: BP 134/95
--- NOTE | 2018-06-30 08:47 | CP SOUTH PROGRESS NOTE PSYCH ---
Psych (Inpt) Progress Note Progress Note I reviewed Dr. Mitchell's notes (covering for the weekend of 06/28 and 2017). The patient's progress, treatment plan, and aftercare plans were discussed in the treatment team meeting this morning. Team members included: LCSWs, RNs, OTR/ L, Activities Therapist, and Psychiatrist. Mental Status Examination Josué was alert and oriented to time, place, and person. He was calm and cooperative, showed normal psychomotor activity. No abnormal or bizarre behaviors. Normal speech, not pressured. He showed good range of affect, he reported that he's feeling much better (not depressed). He was calm and in good spirits. He denied wishing or thoughts of suicide. He denied any thoughts of violence or homicide today. He denied hallucinations. He denies feeling paranoid, there were no delusions during the interview. He was coherent, no thought disorder, and no difficulties with information processing. No evidence of short-term memory impairment. Treatment Plan Update: Discharge Home Major Depressive Disorder Adjustment Disorder with disturbance of emotions and conduct Treatment Plan: The patient was mostly concerned about the sexual side effects of antidepressants. I discussed with him options that have minimal sexual side effects regarding antidepressant medications and he was agreeable to give Remeron chance I discussed with him the advantages and side effects of Remeron and we agreed on the following plan: D/C CIWA D/C PRN Librium Reduce bedtime Librium to 10 mg QHS for the weekedn Start Remeron 7.5 mg at bedtime Slated for discharge on Saturday
[2018-06-30] MEDS ORDERED: REMERON15 M2 PO (08:53)
--- NOTE | 2018-06-30 08:56 | Patient Discharge Instructions ---
Psych Discharge Inst General Discharge Information Reason for Admission: suspicion of overdose Psy Discharge Primary Diag+ Major Depressive Disorder Summary Tests/Major Procedures Lab Acetaminophen < 10.0 ug/mL L 06/24/18 1535 Acetaminophen < 10.0 ug/mL L 06/24/18 1850 Studies Pending at DC: none Patient Instructions Contact Information Your Psychiatrist on [facility] was Harvey LOOMIS,Michael * If you are experiencing an emergency related to this hospitalization, please call [phone] to contact the treating psychiatrist or the psychiatrist-on- call. * To Request a copy of your medical records, please contact the Medical Records Department at [phone]. * To request results of studies pending at the time of discharge, please call [phone]. * Continue your Medications until directed to stop by your Healthcare provider. General Medication Information Please continue to take your new medications and your continued home medications , unless otherwise indicated on your discharge medication list, or unless directed by your MD or ELECTRONIC WIRER to stop them. Special Instructions Diet Regular Activity Normal - Tobacco Use Treatment Offered Post DC Medications Offered: Not Applicable Post DC Tobacco Treatment Plan: Not Applicable - EtOH/Drug Use D/O Treatment Offered Post DC Medications Offered: NA-No EtOH/Drug Use D/O Post DC EtOH/SubAbuse TX Plan: NA-No EtOH/Drug Use D/O Metabolic Screening Not Applicable, patient not on a neuroleptic. Advance Directives Does the Patient have Medical Advance Directives No/Refused further info Does Pt have Psychiatric Advance Directives? No/Refused further info Does Patient have a Designated Surrogate Decision Maker: No Information About Psychiatric Advance Directives Provided? Refused Discharge Plan Post Hospital Treatment Plan: Marycruz Samuels APRN
--- NOTE | 2018-06-30 10:54 | SOCIAL WORKER PROG NOTE PSYCH ---
Social Work Progress Note Progress Note Met with Josué this morning. He reported having a good weekend. Visited with ex - and her current boyfriend. Mood has improved since admission. Talked alot about the difficult decision of returning to [place] to live and leave his 7 year old daughter with her Mother here. Josué was very emotional is sharing the difficulty he has had in making this decision. He feels it is in his best interest to return to [place]. Stated he needs the support of his family there and he is able to work there with his Brother. He said he felt great the three months he was in [place]. He feels a romero with his daughter and feels badly that she cannot make this move with him. He feels she would be better off in the [facility]. Reported that the day he took the pills and drank the alcohol was a bad decision and just an off day for him. He doesn't know why he did it and stated it was not typical. Reports he may have 1-2 glasses of wine with dinner, but denies there is a alcohol problem. He feels isolated at home and is looking forward to his plan with mixed emotion. He is agreeable to go to [facility] until he moves to [place]. He feels it will be a quick transition within a couple of weeks. 1:15 intake is scheduled for today at [facility]. Josué has his truck here and will drive home after intake today.
--- NOTE | 2018-06-30 11:08 | SOCIAL WORKER PROG NOTE PSYCH ---
Social Work Progress Note Progress Note Psychiartric Community Health Worker Note Scheduled [facility] IOP appt for pt for Saturday, 06.30.18 at 1:15pm Rosie "Gege" Dwayne [facility] Worker
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
--- NOTE | 2018-06-30 14:06 | SOCIAL WORKER PROG NOTE PSYCH ---
Social Work Progress Note Faxed Referral(s) Referred To: [facility] Transition of Care Documents sent: Health Summary Faxed to: [facility] Fax #: [phone] Faxed by: Daria Graf Date faxed: 06/30/18 Time Faxed: [phone]
== END 2018-06-30 13:05 | DRG 881 ==
LOC: ERH 14:57 → CP SOUTH 06-25 10:42 → ERHI 06-25 10:42 → ENTRNSPT 06-25 10:46 → EDTRNSPTSTS 06-25 10:54 → EDTRNSPT 06-25 10:54 → CP SOUTH 06-25 11:07 → CMPTRNSPT 06-25 11:16 → CP SOUTH 06-26 12:46
PROVIDERS: Physician Assistant Medical
DX: F32.9 Major depressive disorder, single episode, unspecified (principal)
CPT/HCPCS: 80307; 81003; 93005; 93010; G0480; J3490